=== PATIENT | female | born 2000 | race Asian ===

== ENCOUNTER 2020-02-08 11:37 | Emergency (ER) | payer MEDICAID ==
[~2020-02-08] VITALS: Ht 165.1 cm; Wt 48.0 kg
[2020-02-08] MEDS ORDERED: ONDANSETRON 4MG ODT PO ONE (12:00)
[2020-02-08] MEDS ORDERED: KETOROLAC 60MG/2ML VIAL IM ONE (13:45)
[2020-02-08 13:55] VITALS: BP 117/81
[2020-02-08 15:03] LABS: CLARITY URINE CLEAR (CLEAR); COLOR URINE YELLOW (YELLOW); KETONES URINE NEGATIVE (NEGATIVE); LEUKOCYTE ESTERASE URINE NEGATIVE (NEGATIVE); NITRITE URINE NEGATIVE (NEGATIVE); OCCULT BLOOD URINE NEGATIVE (NEGATIVE); PROTEIN URINE NEGATIVE (NEGATIVE); SPECIFIC GRAVITY URINE 1.013 (1.005-1.030); UROBILINOGEN URINE 0.2 E.U./dL (0.2-1.0)
== END 2020-02-08 13:56 | disposition home or self-care (01) ==
LOC: ER 11:37
DX: R51.9 Headache, unspecified (principal)
CPT/HCPCS: 81003; 81025; 99283; Q0162; J1885

== ENCOUNTER 2020-03-06 14:09 | Emergency (ER) | payer MEDICAID ==
[~2020-03-06] VITALS: Ht 165.1 cm; Wt 48.0 kg
[2020-03-06 14:16] VITALS: BP 125/80
[2020-03-06] MEDS ORDERED: ACETAMINOPHEN 325MG TABLET PO ONE (14:45)
== END 2020-03-06 15:39 | disposition home or self-care (01) ==
LOC: ER 14:09
DX: F07.81 Postconcussional syndrome (principal); F17.200 Nicotine dependence, unspecified, uncomplicated
CPT/HCPCS: 99281